=== PATIENT | male | born 1990 | race Two or more races ===

== ENCOUNTER 2018-06-03 22:16 | Emergency (ER) | payer OTHER ==
[~2018-06-03] VITALS: Ht 185.4 cm; Wt 86.2 kg
[2018-06-03 22:50] VITALS: BP 145/70
[2018-06-03] MEDS ORDERED: NKM (22:51)
[2018-06-04 00:41] LABS: EOSINOPHILS % (AUTO) 0.5 % (0.0-3.0); HEMATOCRIT 41.6 % (42.0-52.0); HEMOGLOBIN 14.2 G/DL (14.2-18.0); MEAN CORPUSCULAR VOLUME 88 FL (80-99); NEUTROPHILS % (AUTO) 47.6 % (45.0-75.0); PLATELET COUNT 205 K/UL (150-450); RED BLOOD COUNT 4.73 M/UL (4.70-6.10); RED CELL DISTRIBUTION WIDTH 10.7 % (11.6-14.8); WHITE BLOOD COUNT 5.3 K/UL (4.8-10.8)
[2018-06-04 00:49] LABS: ANION GAP 10 mmol/L (5-15); BLOOD UREA NITROGEN 10 mg/dL (7-18); CALCIUM 8.7 MG/DL (8.5-10.1); CARBON DIOXIDE 27 MMOL/L (21-32); CHLORIDE 107 MMOL/L (98-107); CREATININE 0.9 MG/DL (0.55-1.30); SODIUM 144 MMOL/L (136-145)
[2018-06-04 00:52] LABS: ALANINE AMINOTRANSFERASE 26 U/L (12-78); ALBUMIN 4.3 G/DL (3.4-5.0); ALBUMIN/GLOBULIN RATIO 1.1 (1.0-2.7); ALKALINE PHOSPHATASE 53 U/L (46-116); ASPARTATE AMINO TRANSFERASE 20 U/L (15-37); BILIRUBIN,TOTAL 0.6 MG/DL (0.2-1.0)
--- NOTE | 2018-06-04 03:36 | Emergency Room Report ---
History of Present Illness General Chief Complaint: Headache Source: Patient Present Illness HPI Patient complains of a severe headache. He is status post traumatic brain injury with craniotomy. He says the pain is 10/10. He's been drinking alcohol and is slurring his words and will not answer many of the questions. Denies any vomiting or diarrhea. He denies fever or neck pain. He also denies recent trauma. Head injury with craniectomy and brain damage 2014. Allergies: Coded Allergies: No Known Allergies (Unverified , 06/03/18) Patient History Limited by: medical condition Past Medical History: see triage record Past Surgical History: other - craniotomy Social History: Reports: alcohol use Social History Narrative brought by friend Reviewed Nursing Documentation: PMH: Agreed; PSxH: Agreed Review of Systems All Other Systems: limited Physical Exam Vital Signs Date Time Temp Pulse Resp B/P (MAP) Pulse Ox O2 Delivery O2 Flow Rate FiO2 06/03/18 22:47 97.0 90 18 145/70 97 Room Air Sp02 EP Interpretation: reviewed, normal General Appearance: other - Etoh on breath and slurred speech Head: other - post craniectomy R Eyes: bilateral eye PERRL, bilateral eye abnormal EOM - nystagmus, bilateral eye Scleral Injection ENT: moist mucus membranes Neck: supple, no bony tend Respiratory: chest non-tender, lungs clear, normal breath sounds Cardiovascular #1: regular rate, rhythm Cardiovascular #2: 2+ radial (R) Gastrointestinal: non tender, soft, decreased bowel sounds Musculoskeletal: back normal, digits/nails normal, normal range of motion, non- tender Neurologic: motor strength/tone normal, DTRs symmetric, sensory intact, other - lethargic, ataxic Psychiatric: no suicidal/homicidal ideation, depressed affect Skin: other - old scars Medical Decision Making Diagnostic Impression: Primary Impression: Headache Qualified Codes: R51 - Headache Additional Impressions: Alcohol intoxication Qualified Codes: F10.929 - Alcohol use, unspecified with intoxication, unspecified Hypokalemia ER Course Patient complains about headache and is altered. There is alcohol on his breath. Differential includes polypharmacy abuse, brain bleed, electrolyte abnormality amongst others. Evaluation will be with CT the head, EKG and labs. The patient will receive IV hydration. At this time he is denying severe headache to me however he seems to be intoxicated. He does not appear toxic and is afebrile. He'll be reevaluated. EKG with normal sinus rhythm and normal EKG rate of 82. Chest x-ray no infiltrates. CT of the head postoperative findings related to extensive right- sided craniectomy and cranioplasty. No evidence of acute intracranial hemorrhage. Large focus of encephalomalacia and volume loss involving muscle right temporal parietal and frontal lobes with X. He will dilatation of the right lateral ventricle. There is swelling and degeneration of the right cerebellar peduncle and right wen-midbrain. Labs remarkable for positive blood alcohol. K slightly low. Tylenol given for JARQUIN. Also given oral potassium. Improved. Denies SI or HI. Brought by friend. Feels OK to go. States he will not stop drinking. Patient stale for outpatient observation and treatment. Laboratory Tests Test 06/04/18 00:16 06/04/18 05:42 White Blood Count 5.3 K/UL (4.8-10.8) Red Blood Count 4.73 M/UL (4.70-6.10) Hemoglobin 14.2 G/DL (14.2-18.0) Hematocrit 41.6 % (42.0-52.0) L Mean Corpuscular Volume 88 FL (80-99) Mean Corpuscular Hemoglobin 30.1 PG (27.0-31.0) Mean Corpuscular Hemoglobin Concent 34.2 G/DL (32.0-36.0) Red Cell Distribution Width 10.7 % (11.6-14.8) L Platelet Count 205 K/UL (150-450) Mean Platelet Volume 9.3 FL (6.5-10.1) Neutrophils (%) (Auto) 47.6 % (45.0-75.0) Lymphocytes (%) (Auto) 44.0 % (20.0-45.0) Monocytes (%) (Auto) 7.0 % (1.0-10.0) Eosinophils (%) (Auto) 0.5 % (0.0-3.0) Basophils (%) (Auto) 1.0 % (0.0-2.0) Sodium Level 144 MMOL/L (136-145) Potassium Level 3.0 MMOL/L (3.5-5.1) L Chloride Level 107 MMOL/L (98-107) Carbon Dioxide Level 27 MMOL/L (21-32) Anion Gap 10 mmol/L (5-15) Blood Urea Nitrogen 10 mg/dL (7-18) Creatinine 0.9 MG/DL (0.55-1.30) Estimate Glomerular Filtration Rate > 60 mL/min (>60) Glucose Level 118 MG/DL (74-106) H Calcium Level 8.7 MG/DL (8.5-10.1) Total Bilirubin 0.6 MG/DL (0.2-1.0) Aspartate Amino Transferase (AST) 20 U/L (15-37) Alanine Aminotransferase (ALT) 26 U/L (12-78) Alkaline Phosphatase 53 U/L (46-116) Total Protein 8.2 G/DL (6.4-8.2) Albumin 4.3 G/DL (3.4-5.0) Globulin 3.9 g/dL Albumin/Globulin Ratio 1.1 (1.0-2.7) Salicylates Level 0.2 ug/mL (2.8-20) L Acetaminophen Level < 2 MCG/ML (10-30) L Serum Alcohol 201 mg/dL Urine Color Pending Urine Appearance Pending Urine pH Pending Urine Specific [place] Pending Urine Protein Pending Urine Glucose (UA) Pending Urine Ketones Pending Urine Blood Pending Urine Nitrite Pending Urine Bilirubin Pending Urine Urobilinogen Pending Urine Leukocyte Esterase Pending Urine Opiates Screen Pending Urine Barbiturates Screen Pending Phencyclidine (PCP) Screen Pending Urine Amphetamines Screen Pending Urine Benzodiazepines Screen Pending Urine Cocaine Screen Pending Urine Marijuana (THC) Screen Pending EKG Diagnostic Results Rate: normal Rhythm: NSR ST Segments: no acute changes Rhythm Strip Diag. Results EP Interpretation: yes Rhythm: NSR, no PVC's, no ectopy Chest X-Ray Diagnostic Results Chest X-Ray Diagnostic Results : Chest X-Ray Ordered: Yes # of Views/Limited/Complete: 1 View Indication: Other EP Interpretation: Yes Interpretation: no consolidation, no effusion, no pneumothorax Impression: No acute disease Electronically Signed by: Nahum Otero MD CT/MRI/US Diagnostic Results CT/MRI/US Diagnostic Results : Imaging Test Ordered: head Impression see above Last Vital Signs Date Time Temp Pulse Resp B/P (MAP) Pulse Ox O2 Delivery O2 Flow Rate FiO2 06/04/18 06:15 97.7 72 16 131/70 98 Room Air Status: improved Disposition: HOME, SELF-CARE Condition: Improved Scripts Acetaminophen (Tylenol) 325 Mg Tablet 650 MG ORAL Q6H PRN for Prn Pain/Headache/Temp > 101, #20 TAB 0 Refills Prov: Nahum Otero MD 06/04/18 Referrals: NOT CHOSEN IPA/,REFERRING (PCP) Nahum Otero MD Jun 04, 2018 03:36
[2018-06-04 05:57] LABS: APPEARANCE,URINE CLEAR; BILIRUBIN, URINE NEGATIVE (NEGATIVE); COLOR,URINE PALE YELLOW; GLUCOSE, URINE (UA) NEGATIVE (NEGATIVE); KETONES,URINE NEGATIVE (NEGATIVE); LEUKOCYTE ESTERASE ,URINE NEGATIVE (NEGATIVE); NITRITE,URINE NEGATIVE (NEGATIVE); PH,URINE 5 (4.5-8.0); UROBILINOGEN,URINE NORMAL MG/DL (0.0-1.0)
[2018-06-04] MEDS ORDERED: TYLENOL325 MG ORAL (06:03)
[2018-06-04 06:05] LABS: PROTEIN,URINE NEGATIVE (NEGATIVE)
[2018-06-04 06:15] VITALS: BP 131/70
== END 2018-06-04 06:15 | disposition home or self-care (01) ==
LOC: EMR 23:38
DX: R51 Headache (principal); F10.929 Alcohol use, unspecified with intoxication, unspecified; E87.6 Hypokalemia; Z87.820 Personal history of traumatic brain injury; G93.89 Other specified disorders of brain
CPT/HCPCS: 36415; 70450; 71045; 80053; 80307; 81003; 85025; 93005; 96360; 99284; G0480; 80329; J8499

== ENCOUNTER 2019-05-19 22:49 | Emergency (ER) | payer OTHER ==
[~2019-05-19] VITALS: Ht 185.4 cm; Wt 84.4 kg
[~2019-05-19 22:49] MED LIST: NKM; TYLENOL325 MG ORAL
[2019-05-19 22:57] VITALS: BP 119/84
--- NOTE | 2019-05-19 22:57 | NUR ---
ED Nurse Note: Patient walked in to ER stated that he needs blood test and get checked. Pt was here few hours ago refusing treatment. As per the rehab center supervisor shop, pt needs alcohol and blood testing in order for them to readmit the patient. No SOB. Afebrile. VSS.
--- NOTE | 2019-05-19 23:00 | Emergency Room Report ---
History of Present Illness General Chief Complaint: General Complaint Source: Patient, Caregiver Present Illness HPI Is a 28-year-old male with a history of intracranial bleed with resultant left- sided weakness. He also has history of alcohol abuse. He was here earlier but refused any CAT scan or blood work. He was sent back by the supervisor lead burning at the rehab center saying that he needs alcohol and drug testing. They found gabapentin and Seroquel on his possession. There was no prescription for. In order for him to be readmitted to the rehab center, you need to be clear of alcohol and narcotics. This for safety of other clients. Patient finally agreed to these 2 tests. He refused before. Please note that his other visit was under the name Cain Rice. Denies any trauma. Patient denies any complaint. Allergies: Coded Allergies: No Known Allergies (Unverified , 06/03/18) Patient History Past Medical History: see triage record, old chart reviewed Past Surgical History: other Pertinent Family History: none Social History: Reports: alcohol use Immunizations: other Reviewed Nursing Documentation: PMH: Agreed; PSxH: Agreed Nursing Documentation-PMH Past Medical History: No History, Except For Review of Systems Eye: Denies: eye pain, blurred vision ENT: Denies: ear pain, nose congestion, throat swelling Respiratory: Denies: cough, shortness of breath Cardiovascular: Denies: chest pain, palpitations Gastrointestinal: Denies: abdominal pain, diarrhea, nausea, vomiting Musculoskeletal: Denies: back pain, joint pain Skin: Denies: rash Neurological: Denies: headache, numbness Endocrine: Denies: increased thirst, increased urine Hematologic/Lymphatic: Denies: easy bruising All Other Systems: negative except mentioned in HPI Physical Exam Vital Signs Date Time Temp Pulse Resp B/P (MAP) Pulse Ox O2 Delivery O2 Flow Rate FiO2 05/19/19 22:52 97.9 88 18 119/84 (96) 98 Room Air Vitals normal Sp02 EP Interpretation: reviewed, normal General Appearance: well appearing, no apparent distress, alert Head: normocephalic, atraumatic Eyes: bilateral eye PERRL, bilateral eye EOMI ENT: hearing grossly normal, normal pharynx Neck: full range of motion, supple, no meningismus Respiratory: chest non-tender, lungs clear, normal breath sounds Cardiovascular #1: regular rate, rhythm, no murmur Gastrointestinal: normal bowel sounds, non tender, no mass, no organomegaly, no bruit, non-distended Musculoskeletal: back normal, normal range of motion, gait/station normal Neurologic: other - Left sided weakness Psychiatric: mood/affect normal Medical Decision Making Diagnostic Impression: Primary Impression: Encounter for generalized patient complaints ER Course Patient here for drug testing. Positive for marijuana. No intoxication. Will discharge home. Last Vital Signs Date Time Temp Pulse Resp B/P (MAP) Pulse Ox O2 Delivery O2 Flow Rate FiO2 05/19/19 22:52 97.9 88 18 119/84 (96) 98 Room Air Status: unchanged Disposition: HOME, SELF-CARE Condition: Stable Additional Instructions: Follow-up with your doctor in 7 days as needed. Return if worse. Mk Ricks MD May 19, 2019 23:00
--- NOTE | 2019-05-19 23:02 | NUR ---
ED Nurse Note: Blood and urine collected and sent to lab.
[2019-05-19 23:32] VITALS: BP 119/84
--- NOTE | 2019-05-19 23:32 | NUR ---
ED Nurse Note: Pt cleared by ERMD for discharge. DC instructions was given and explained to pt and verbalized understanding of teachings. All medical deviecs such as ID band removed. Pt is AAO x4, ambulatory and left with all personal belongings. Accompanied by rehab supervisor product inspection.
== END 2019-05-19 23:32 | disposition home or self-care (01) ==
LOC: EMR 23:20
DX: Z76.89 Persons encountering health services in other specified circumstances (principal); Z87.828 Personal history of other (healed) physical injury and trauma; Z72.89 Other problems related to lifestyle; F12.90 Cannabis use, unspecified, uncomplicated
CPT/HCPCS: 36415; 80307; 99283; G0480